=== PATIENT | male | born 1940 | race Caucasian/White ===

== ENCOUNTER 2016-08-16 05:24 | Inpatient (IN) | payer MEDICARE, OTHER ==
[~2016-08-16 05:24] MED LIST: ASPIRIN325 M3 PO; BYSTOLIC10 MG PO; CALCIUM CITRAT1 EA18 PO; CARDIZEM CD120 M1 PO; CENTRUM SILVER1 EAC3 PO; FLEXERIL10 MG PO; HYZAAR 100-251 EACH PO; LECITHIN1200 M1 PO; LIPITOR40 M1 PO; LORTAB 5-500 T1 EAC1 PO; LOSARTAN POTASS25 MG PO; MELATONIN3 M4 PO; MULTIVITAMIN1 TAB PO; NASACORT AQ16.5 G1 NS; NORCO 5/325 TAB1 TAB PO; PLAVIX75 M1 PO; TUMS500 M1 PO; TYLENOL500 MG PO; VITAMIN C1000 M1 PO; ZANTAC150 M1 PO; ZANTAC150 MG PO
[2016-08-16 06:21] LABS: PROTHROMBIN TIME 11.2 SECONDS (9.0-13.6)
[2016-08-18] MEDS ORDERED: NORCO 5-325 TA1 EACH PO (10:14)
== END 2016-08-18 11:40 | DRG 39 ==
LOC: SHSB 05:24 → ORW 08:05 → PACU 10:01 → CCU 12:10 → 5WD 08-17 18:00
PROVIDERS: ADMIT Surgery Vascular Surgery
PROC: 03CH0ZZ Extirpation of Matter from Right Common Carotid Artery, Open Approach (ICD-10-PCS; principal; 2016-08-16)
PROC: 03UH0KZ Supplement Right Common Carotid Artery with Nonautologous Tissue Substitute, Open Approach (ICD-10-PCS; 2016-08-16)
DX: I65.21 Occlusion and stenosis of right carotid artery (principal); I10 Essential (primary) hypertension; Z87.891 Personal history of nicotine dependence; Z79.02 Long term (current) use of antithrombotics/antiplatelets; Z79.82 Long term (current) use of aspirin; Z79.899 Other long term (current) drug therapy
CPT/HCPCS: C2628; J0690; J1265; J1580; J1644; J2250; J2720; J3010; J7030; J7040